=== PATIENT | male | born 1930 | race Caucasian/White ===

== ENCOUNTER 2017-07-25 05:20 | Observation (INO) | payer MEDICARE, OTHER ==
[~2017-07-25] VITALS: Ht 170.2 cm; Wt 93.0 kg
[~2017-07-25 05:20] MED LIST: ALEVE220 MG PO; AMLODIPINE BESYL5 MG PO; ASPIRIN325 MG PO; AUGMENTIN 500-1 EACH PO; BETA PROSTATE PO; CABERGOLINE0.5 MG PO; DETROL LA4 MG PO; HYDROCHLOROTHIA25 MG PO; HYDROCORTISONE10 MG PO; IBUPROFEN200 MG PO; MELOXICAM7.5 MG PO; NORCO 10-325 T1 EACH PO; OXYBUTYNIN CHLOR5 MG PO; TAMSULOSIN HCL0.4 MG PO; TEMAZEPAM15 MG PO
[2017-07-25] MEDS ORDERED: CEFAZOLIN SOD 2 GM/D5W 50ML 50 ML IV ONE (05:43)
[2017-07-25] MEDS ORDERED: CELECOXIB 200 MG CAP ONE (06:13)
[2017-07-25] MEDS ORDERED: GABAPENTIN 300 MG CAP ONE (06:13)
[2017-07-25] MEDS ORDERED: DEXAMETHASONE SOD PHOS 10 MG/1 ML VIAL ONE (06:13)
[2017-07-25] MEDS ORDERED: TRANEXAMIC ACID 1,000 MG/10 ML ML ONE (06:29)
[2017-07-25] MEDS ORDERED: MUPIROCIN 2% OINT 22 GM TUBE ONE (06:29)
[2017-07-25] MEDS ORDERED: BACITRACIN 50,000 UNIT VIAL ONE (06:29)
[2017-07-25 06:38] LABS: BASOPHILS # (AUTO) 0.1 (0.0-0.1); BASOPHILS % 0.8 % (0.0-1.0); EOSINOPHILS # (AUTO) 0.4 (0.0-0.4); EOSINOPHILS % 4.3 % (0.0-6.0); HEMATOCRIT 43.4 % (38.2-49.6); LYMPHOCYTES # (AUTO) 1.7 (1.0-3.2); LYMPHOCYTES % 19.7 % (18.0-39.1); MEAN CORPUSCULAR HEMOGLOBIN 29.3 pg (28-32); MEAN CORPUSCULAR HGB CONC 32.3 g/dL (31-35); MEAN CORPUSCULAR VOLUME 90.8 fL (81-99); MONOCYTES # (AUTO) 0.8 (0.2-0.8); MONOCYTES % 9.3 % (4.4-11.3); NEUTROPHILS # (AUTO) 5.7 (2.1-6.9); NEUTROPHILS % 65.3 % (38.7-80.0); PLATELET COUNT 240 x10e3/uL (140-360); RED BLOOD COUNT 4.78 x10e6/uL (4.3-5.7)
--- NOTE | 2017-07-25 07:02 | Diagnostic Imaging Report ---
PROCEDURE: CHEST SINGLE (PORTABLE) COMPARISON: 03/10/2017. INDICATIONS: PRE-OPERATIVE CHEST X-RAY FOR RT. KNEE SURGERY. FINDINGS: The lungs are well-inflated. No appreciable interval change in diffuse interstitial opacities relative to 03/10/2017 accounting for differences in technique. No new consolidation, pleural effusion, or pneumothorax. Stable cardiomediastinal contour with tortuosity and atherosclerotic calcification of the thoracic aorta. Normal heart size. No acute osseous abnormality. CONCLUSION: No acute cardiopulmonary abnormality. Stable appearance of the pulmonary interstitium, which may reflect age-related fibrotic changes. Dictated by: Bradley Lees M.D. on 07/25/2017 at 7:10 Electronically approved by: Bradley Lees M.D. on 07/25/2017 at 7:10
[2017-07-25 07:08] LABS: ANION GAP 12.9 mmol/L (8-16); BLOOD UREA NITROGEN 15 mg/dL (7-26); BUN/CREATININE RATIO 13 (6-25); CALCIUM 10.3 mg/dL (8.4-10.2); CARBON DIOXIDE 25 mmol/L (22-29); CHLORIDE 106 mmol/L (98-107); CREATININE, SERUM 1.13 mg/dL (0.72-1.25); EST GLOMERULAR FILTRATION RATE > 60 ML/MIN (60-); GLUCOSE 84 mg/dL (74-118); POTASSIUM 3.9 mmol/L (3.5-5.1); SODIUM 140 mmol/L (136-145)
[2017-07-25] MEDS ORDERED: ROPIVACAINE 246.25 MG, EPINEPHRINE HCL 1:1000 0.5 MG, CLONIDINE HCL 0.08 MG, KETOROLAC ... INJ ONE ×5 (07:30)
[2017-07-25] MEDS ORDERED: PROMETHAZINE HCL (IM) 25 MG/ML VIAL IM PRN (09:00)
[2017-07-25] MEDS ORDERED: ONDANSETRON HCL INJ 2 MG/ML VIAL IV PRN (09:00)
[2017-07-25] MEDS ORDERED: ZOLPIDEM TARTRATE 5 MG TAB PO PRN (09:00)
[2017-07-25] MEDS ORDERED: DOCUSATE SODIUM 100 MG CAP PO PRN (09:00)
[2017-07-25] MEDS ORDERED: DIPHENHYDRAMINE HCL INJ 50 MG/ML VIAL IM/IV PRN (09:00)
--- NOTE | 2017-07-25 09:26 | Diagnostic Imaging Report ---
PROCEDURE: X-RAY RIGHT KNEE, ONE OR TWO VIEWS COMPARISON: None. INDICATIONS:S/P RT. TOTAL KNEE ARTHROPLASTY FINDINGS: See conclusion. CONCLUSION: Status post total right knee replacement with surrounding soft tissue swelling, air and mylene consistent with recent surgery. No acute fractures. Dictated by: Bradley Lees M.D. on 07/25/2017 at 9:34 Electronically approved by: Bradley Lees M.D. on 07/25/2017 at 9:34
[2017-07-25] MEDS ORDERED: FENTANYL CITRATE/PF 100MCG/2 ML INJ ONE ×2 (09:42→19:03)
[2017-07-25] MEDS: ACETAMINOPHEN 1000 MG/100 ML IV SCH ×3 (12:00→23:48)
--- NOTE | 2017-07-25 13:45 | Operative Report ---
DATE OF PROCEDURE: July 25, 2017 REED REPAIRER: Thomas Emmanuel PA-C The patient was brought to the operating room for induction of anesthesia. Throughout this case, my PA's assistance was necessary for retraction of soft tissue and positioning of the extremity. This allows for efficient and technically successful execution of the operation and is considered medically necessary. PREOPERATIVE DIAGNOSIS: Osteoarthritis right knee. POSTOPERATIVE DIAGNOSIS: Osteoarthritis right knee. PROCEDURE: Right total knee arthroplasty. INDICATIONS: The patient is an 87-year-old gentleman who has end stage arthritis of his right knee. He otherwise remains active. He underwent a left total knee replacement several months ago. He is happy with his progress and would now like to have the right side done. We have reviewed the risks and benefits with the patient and his family. He states he understands and wishes to proceed. DESCRIPTION OF PROCEDURE: The patient was brought to the operating room and placed under general anesthetic. His right lower extremity was prepped and draped in a sterile manner. He received prophylactic antibiotics, a regional block and tranexamic acid in the holding area. A preoperative time out was performed. The extremity was exsanguinated, and a proximal tourniquet was inflated to 300 mmHg. An anterior approach with a medial parapatellar arthrotomy was performed. Clear synovial fluid was removed from the joint. Soft-tissue releases were performed to bring the knee up into flexion with the patella everted. The cruciate ligaments were sacrificed. A [employer] II posterior stabilized knee system was used. Meniscal remnants and marginal osteophytes were removed. An extramedullary cutting guide was used to resect the proximal tibia. The tibial baseplate was a size number 6. The central fin punch was impacted, and attention was directed towards the distal femur. An intramedullary cutting guide was used to resect the distal femur in 6 degrees of valgus and rotation referenced off of a combination of landmarks including the epicondylar axis, Cori's line and the posterior condyles. The femoral component was a size number 7. The anterior and posterior cuts were made. A trial reduction was performed. A 9 mm ultracongruent tibial insert was felt to provide optimal soft-tissue balancing in flexion and extension. The patella was resurfaced with a 35 mm x 9 mm patellar button. The thickness was checked before and after resurfacing and was right at 24 mm. Patellar tracking was noted to be concentric. The trial implants were removed. A 100 mL premixed pericapsular ORTIZ injection was placed into the soft tissue. The knee was thoroughly irrigated with a Pulsavac. A single mix of high-viscosity Simplex cement pre-loaded with antibiotics was used to cement the components into place. The knee was further irrigated while the cement cured. The arthrotomy was closed with interrupted number 1 Ethibond. The knee was put through flexion and extension to ensure a secure closure. The skin was closed with subcuticular Vicryl and mylene. A sterile bandage was applied. The patient was extubated and transported to the recovery room in stable condition. Blood loss was minimal. All needle and sponge counts were correct. Job#: [id number] JOSÉ ANTONIO
[2017-07-25] MEDS ORDERED: CEFAZOLIN SOD 1 GM/NS 50ML 50 ML IV SCH (14:00)
[2017-07-25] MEDS: CEFAZOLIN SOD 1 GM VIAL IV SCH ×2 (14:04→21:42)
[2017-07-25 15:52] VITALS: BP 153/67
[2017-07-25] MEDS: CELECOXIB 200 MG CAP PO SCH (16:50)
[2017-07-25 17:06] VITALS: BP 141/71
[2017-07-25] MEDS ORDERED: PROPOFOL IV EMULSION 10 MG/ML 20 ML VIAL ONE (18:00)
[2017-07-25] MEDS ORDERED: LIDOCAINE HCL 2% LOCAL INJ 5 ML SDV VIAL INJ ONE (18:00)
[2017-07-25] MEDS ORDERED: SEVOFLURANE INHAL SOLN 250 ML PEN BTL ONE (18:00)
[2017-07-25] MEDS ORDERED: ONDANSETRON HCL INJ 2 MG/ML VIAL ONE (18:00)
[2017-07-25] MEDS ORDERED: DEXAMETHASONE SOD PHOS INJ 4 MG/ML VIAL ONE (18:00)
[2017-07-25] MEDS ORDERED: LIDOCAINE 2% /EPINEPHRINE 20 ML SDV INJ ONE (18:55)
[2017-07-25] MEDS ORDERED: ROPIVACAINE 0.5% 5 MG/ML 30 ML SDV ONE (18:55)
[2017-07-25] MEDS ORDERED: MIDAZOLAM HCL 2 MG/2 ML VIAL ONE (19:03)
[2017-07-25] MEDS ORDERED: MORPHINE SULFATE INJ 10 MG/ML ONE (19:03)
--- NOTE | 2017-07-25 19:22 | Consultation ---
DATE OF CONSULTATION: July 25, 2017 REASON FOR CONSULTATION: Right knee replacement. HISTORY OF PRESENT ILLNESS: This is Mr. Arciniega with a history of , history of urinary incontinence and osteoarthritis of the right knee, and also Parkinson, who came in here for right knee replacement for osteoarthritis. The patient had his surgery. The patient is comfortable right now and consulted for medical management. PAST MEDICAL HISTORY: History of Parkinson disease, history of chronic pain disorder, history of insomnia, history of urinary incontinence. MEDICATIONS: He takes at home: 1. Amlodipine. 2. 0.5 mg. 3. Hydrocodone 10 per 325 mg. 4. Hydrocortisone 10 mg. 5. Cortisone for his adrenal insufficiency. 6. Temazepam for sleep. 7. Also, takes Detrol-LA for his incontinence. SURGICAL HISTORY: Recently had a left knee replacement too. The patient had skin cancers removed. 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 FAMILY HISTORY: Positive for heart failure, heart disease in father. Hypertension in his father too. REVIEW OF SYSTEMS: Negative for chest pain at this time. No shortness of breath. No nausea, vomiting or diarrhea. No constipation or rectal bleeding. Pain is controlled in his right knee. No diplopia. No blurry vision. No nausea, vomiting or diarrhea. PHYSICAL EXAMINATION GENERAL: The patient is alert and oriented times 3. Pain is 2/10 right now. HEENT: Normocephalic and atraumatic. Pupils reactive to light and accommodation. CV: S1 and S2 normal. Regular rhythm. ABDOMEN: Nontender and nondistended. EXTREMITIES: Right knee in bandage. No drainage or seepage seen. LABS: Initially, before surgery white count was 8.6, hemoglobin 12.4, hematocrit 43.4. Chemistry: Sodium of 140, potassium 3.9, BUN 15, creatinine 1.13. Calcium of 10.3. Imaging of knee status post knee replacement with soft tissue swelling. Otherwise normal. Chest x-ray which was done shows stable appearance of pulmonary and age-related fibrotic changes. ASSESSMENT: Status post right knee surgery. Will restart the patient's medications, including his Parkinson medication. Hold aspirin related products at this time. Tomorrow, check his H and H. Continue home medications. He needs physical therapy, which has been arranged already in [place]. Will continue to monitor the patient along with Dr. Broderick. Thank you for this consult. Job#: [id number] [place]
[2017-07-25 20:00] VITALS: BP 126/56
[2017-07-25] MEDS ORDERED: TEMAZEPAM 15 MG CAP PO PRN (21:00)
[2017-07-25] MEDS: ASPIRIN 325 MG TAB PO SCH (21:42)
[2017-07-25 21:44] VITALS: BP 126/56
[2017-07-25] MEDS: KETOROLAC TROMETHAMINE 30 MG/ML VIAL IV PRN (23:48)
[2017-07-26] VITALS: BP 117/56
[2017-07-26 04:00] VITALS: BP 126/64
[2017-07-26] MEDS: ACETAMINOPHEN 1000 MG/100 ML IV SCH (06:00)
[2017-07-26] MEDS: CEFAZOLIN SOD 1 GM VIAL IV SCH (06:42)
[2017-07-26] MEDS: HYDROCODONE/APAP 7.5MG-325MG 1 EA TAB PO PRN ×2 (06:43→11:36)
[2017-07-26] MEDS: KETOROLAC TROMETHAMINE 30 MG/ML VIAL IV PRN (06:43)
[2017-07-26 07:21] LABS: HEMATOCRIT 36.7 % (38.2-49.6); HEMOGLOBIN 11.7 g/dL (14.0-18.0)
[2017-07-26 08:05] VITALS: BP 130/70
[2017-07-26] MEDS ORDERED: ASPIRIN325 MG PO (08:42)
[2017-07-26] MEDS ORDERED: TOLTERODINE TARTRATE 2 MG CAPCR PO SCH (09:00)
[2017-07-26] MEDS ORDERED: AMLODIPINE BESYLATE 5 MG TAB PO SCH (09:00)
[2017-07-26] MEDS ORDERED: TOLTERODINE TARTRATE 4 MG CAPCR PO SCH (09:00)
[2017-07-26] MEDS ORDERED: HYDROCORTISONE 10 MG TAB PO SCH (09:00)
[2017-07-26] MEDS: CELECOXIB 200 MG CAP PO SCH (09:55)
[2017-07-26] MEDS: ASPIRIN 325 MG TAB PO SCH (09:55)
[2017-07-26 10:00] VITALS: BP 130/70
[2017-07-26 12:00] VITALS: BP 163/67
[2017-07-26] MEDS ORDERED: HYDROCODONE/APAP 5MG-325MG TAB PO PRN (12:00)
[2017-07-26] MEDS ORDERED: ACETAMINOPHEN 650 MG SUPP PR PRN (12:00)
[2017-07-26] MEDS ORDERED: ACETAMINOPHEN 1000 MG/100 ML IV PRN (12:00)
[2017-07-26] MEDS ORDERED: NORCO 7.5-3251 EACH PO (15:15)
== END 2017-07-26 15:30 | disposition home or self-care (01) ==
LOC: OR 05:20 → INTOOBSV 13:56 → MED/SURG 13:56
PROVIDERS: ADMIT Specialist; ATTEND Specialist
DX: M17.11 Unilateral primary osteoarthritis, right knee (principal); Z96.652 Presence of left artificial knee joint; F17.210 Nicotine dependence, cigarettes, uncomplicated; C75.1 Malignant neoplasm of pituitary gland; I10 Essential (primary) hypertension; E27.40 Unspecified adrenocortical insufficiency; G20 Parkinson's disease; R32 Unspecified urinary incontinence
CPT/HCPCS: 27447; 36415 ×2; 71010; 73560; 80048; 85014; 85018; 85025; 86850; 86900; 86920; 93005; 97110; 97116; 97139; 97162; 97530; G0378 ×2; J0171; J0690 ×2; J1100 ×2; J1885 ×2; J2001 ×2; J2250; J2270; J2405; J2795